=== PATIENT | female | born 1990 | race Caucasian/White ===

== ENCOUNTER 2017-10-13 01:17 | Emergency (ER) | payer SELFPAY ==
[2017-10-13] MEDS ORDERED: Ketorolac 60 MG/2 ML SDV IM ONE (01:54)
[2017-10-13] MEDS ORDERED: HYDROmorphone 0.5 MG/0.5 ML SYRINGE IM ONE (01:54)
--- NOTE | 2017-10-13 02:00 | EDM.PDOC ---
ED HPI GENERAL MEDICAL PROBLEM - General Chief Complaint: ENT Problem Stated Complaint: TOOTH PAIN Time Seen by Provider: 10/13/17 01:36 Source of Information: Reports: Patient History Limitations: Reports: No Limitations - History of Present Illness INITIAL COMMENTS - FREE TEXT/NARRATIVE: The patient presents with right sided facial pain and dental pain. This has been going on for about 4 weeks. It comes and goes and it has been worse today. She has a couple bad teeth. The pain will migrate to different areas to the right side of her face. She has no fever or chills. She has no numbness or weakness. She has no chest pain or shortness of breath. Onset: Gradual Duration: Week(s): (4) Location: Reports: Face Quality: Reports: Sharp Severity: Severe Improves with: Reports: None Worsens with: Reports: None Associated Symptoms: Reports: No Other Symptoms Oral/Mouth Pain Score (Numeric/FACES): 10 - Related Data Allergies Allergy/AdvReac Type Severity Reaction Status Date / Time No Known Allergies Allergy Verified 10/13/17 01:25 Home Meds: Home Meds Acetaminophen [Tylenol Extra Strength] 500 mg PO Q4HR PRN 10/13/17 [History] Ibuprofen 200 mg PO Q4HR PRN 10/13/17 [History] Past Medical History - Past Health History Medical/Surgical History: Denies Medical/Surgical History Social & Family History - Family History Family Medical History: Noncontributory - Tobacco Use Smoking Status *Q: Never Smoker - Caffeine Use Caffeine Use: Reports: None - Recreational Drug Use Recreational Drug Use: No ED ROS ENT - Review of Systems Review Of Systems: See Below Constitutional: Reports: No Symptoms HEENT: Reports: Dental Pain Respiratory: Reports: No Symptoms Cardiovascular: Reports: No Symptoms Endocrine: Reports: No Symptoms GI/Abdominal: Reports: No Symptoms : Reports: No Symptoms ED EXAM, ENT - Physical Exam Exam: See Below Exam Limited By: No Limitations General Appearance: Alert, No Apparent Distress Ears: Normal External Exam Nose: Normal Inspection Mouth/Throat: Other (Broken 2nd molar to the upper right gum line that is tender and there is some erythema. She also has a borken 2nd molar to the right lower gum line.) Head: Atraumatic, Normocephalic Course - Vital Signs Last Recorded V/S: Last Vital Signs Temp 98.4 F 10/13/17 01:22 Pulse 82 10/13/17 01:22 Resp 18 10/13/17 01:22 BP 135/90 10/13/17 01:22 Pulse Ox 99 10/13/17 01:22 - Orders/Labs/Meds Orders: Active Orders 24 hr Category Date Time Status HYDROmorphone [Dilaudid] Med 10/13/17 01:54 Once 1 mg IM ONETIME ONE Ketorolac [Toradol] Med 10/13/17 01:54 Once 60 mg IM ONETIME ONE - Re-Assessments/Exams Free Text/Narrative Re-Assessment/Exam: 10/13/17 01:58 I will give her a shot of dilaudid and toradol. I will also get her on some penicillin and percocets. I will give her a prescription for some gabapentin. This could also be trigeminal neuralgia. Departure - Departure Time of Disposition: 02:00 Disposition: Home, Self-Care 01 Condition: Good Clinical Impression: Pain, dental, Dental abscess - Discharge Information Referrals: PCP,Not In Area [Primary Care Provider] - Additional Instructions: Take the antibiotic as prescribed and the percocet for pain. If that does not help try the gabapentin. - My Orders Last 24 Hours: My Active Orders 10/13/17 01:54 HYDROmorphone [Dilaudid] 1 mg IM ONETIME ONE Ketorolac [Toradol] 60 mg IM ONETIME ONE - Assessment/Plan Last 24 Hours: My Active Orders 10/13/17 01:54 HYDROmorphone [Dilaudid] 1 mg IM ONETIME ONE Ketorolac [Toradol] 60 mg IM ONETIME ONE
== END 2017-10-13 02:27 | disposition home or self-care (01) ==
LOC: JD.ED 01:17
DX: K04.7 Periapical abscess without sinus (principal)
CPT/HCPCS: 96372; 99283; J1170; J1885